=== PATIENT | male | born 1990 | race Caucasian/White ===

== ENCOUNTER 2021-01-20 10:21 | Emergency (ER) | payer SELFPAY ==
[~2021-01-20] VITALS: Ht 177 cm; Wt 77.0 kg
[2021-01-20 10:25] VITALS: BP 129/76
--- NOTE | 2021-01-20 11:12 | ED EENT ---
History of Present Illness General Chief Complaint: Dental Problems/Pain Stated Complaint: ABCESS TOOTH, L EAR PAIN Nursing Triage Note: PT CO OF DENTAL PAIN Source: patient Exam Limitations: no limitations History of Present Illness Date Seen by Provider: Jan 20, 2021 Time Seen by Provider: 10:55 Initial Comments Patient is a 30-year-old male who presents to the emergency department today with a chief complaint of left upper posterior molar dental pain. Onset a couple of days ago. Patient is also complaining of decreased hearing and sensation of a foreign object in his left ear. He is also requesting a tetanus shot. No fevers chills, URI complaints. No chest pain shortness of breath abdominal pain nausea or vomiting. Patient states he has not taken anything for his dental pain. He is not current ly on antibiotics and does not have a dentist. Complains of concern for swelling around the gum area of the tooth. All other review of systems reviewed and negative except as stated. Timing/Duration: gradual Location: ear (L), dental Prearrival Treatment: no prearrival treatment Associated Symptoms: change in hearing (Left ear), tooth pain (Left upper posterior molar) Allergies and Home Medications Allergies Coded Allergies: No Known Drug Allergies (Unverified , 11/11/11) Patient Home Medication List Home Medication List Reviewed: Yes Review of Systems Review of Systems Constitutional: see HPI Ears: Pain (Left ear discomfort) Nose: no symptoms reported Mouth: pain (Left upper posterior molar) Throat: no symptoms reported Respiratory: no symptoms reported Cardiovascular: no symptoms reported All Other Systems Reviewed Negative Unless Noted: Yes Past Iymfsbc-Semwwg-Bbkjkd Hx Patient Social History Tobacco Use?: No Substance use?: Yes Substance type: Marijuana Substance frequency: Couple times a week Alcohol Use?: Yes Alcohol Frequency: Rarely Pt feels they are or have been: No Physical Exam Vital Signs Vital Signs - First Documented 01/20/21 10:25 Temp 37.0 Pulse 130 Resp 18 B/P (MAP) 129/76 (93) Pulse Ox 97 O2 Delivery Room Air Height, Weight, BMI Height: '" Weight: lbs. oz. kg; 24.00 BMI Method:Stated General Appearance: WD/WN, no apparent distress Eyes: bilateral eye normal inspection, bilateral eye PERRL, bilateral eye EOMI Ears: left ear auricle normal, left ear foreign body Nose: normal inspection Mouth/Throat: normal mouth inspection, pharynx normal, dental tenderness (Fractured left upper posterior molar at the gumline. A little surrounding gingival hyperemia, tender to palpation no fluctuance. No overlying swelling on the jaw) Neck: full range of motion, supple, normal inspection Cardiovascular: regular rate, rhythm Respiratory: lungs clear, normal breath sounds, no respiratory distress, no accessory muscle use Neurologic/Psychiatric: alert, normal mood/affect, oriented x 3 Skin: normal color, warm/dry Procedures/Interventions Ear : Ear Location: Left Use of: Forceps Progress/Results/Core Measures Results/Orders Vital Signs/I&O 01/20/21 10:25 Temp 37.0 Pulse 130 Resp 18 B/P (MAP) 129/76 (93) Pulse Ox 97 O2 Delivery Room Air Blood Pressure Mean: 93 Progress Progress Note : Time: 11:09 Progress Note Patient seen and evaluated, left upper posterior molar dental pain and lump foreign body in the left ear. Foreign body was identified and forceps were used to remove what appeared to be the cover off of a set of ear pods. Patient tolerated the procedure well afterwards the ear was reexamined and the TM appears normal without effusion or erythema or perforation. 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 He will be placed on antibiotics and given a small prescription of pain meds and advised to take NSAIDs [id number]. Return precautions will be given. Departure Impression Primary Impression: Foreign body in left ear Qualified Codes: T16.2XXA - Foreign body in left ear, initial encounter Additional Impression: Pain, dental Disposition: 01 HOME, SELF-CARE Condition: Stable Departure-Patient Inst. Decision time for Depature: 11:11 Referrals: [facility],LOCAL PHYSICIAN (PCP) Primary Care Physician Patient Instructions: Dental Pain (DC) Add. Discharge Instructions: Take the antibiotics as prescribed for the next 7 days. I have given you a prescription for some pain medications take these only as necessary. Alternate with [id number]-[id number] ibuprofen, 3 tablets which is 600 mg every 6-8 hours with food as needed for pain. Follow-up with [facility] dental clinic. Return to the emergency room for any worsening dental pain, fever over 101, swelling or other emergent concerning symptoms. Scripts Hydrocodone/Acetaminophen (Hydrocodone-Acetamin 5-325 mg) 1 Each Tablet 1 TAB PO Q6H PRN for PAIN-MODERATE (5-7), #10 TAB Prov: ABEL GALEAS MD 01/20/21 Penicillin V Potassium (Penicillin V Potassium) 500 Mg Tablet 500 MG PO QID, #28 TAB Prov: ABEL GALEAS MD 01/20/21 ABEL GALEAS MD Jan 20, 2021 11:12
[2021-01-20] MEDS ORDERED: PENI500T PO (11:13)
[2021-01-20] MEDS ORDERED: ACHD5005 PO (11:13)
[2021-01-20] MEDS ORDERED: TETANUS,DIPTH,PERTUSS P/F (BOOSTRIX) 0.5 ML VIAL IM ONE (11:15)
== END 2021-01-20 11:23 | disposition home or self-care (01) ==
LOC: EDUNIT# 10:21 → ER 10:22
DX: T16.2XXA Foreign body in left ear, initial encounter (principal); K08.89 Other specified disorders of teeth and supporting structures; Z23 Encounter for immunization
CPT/HCPCS: 90715; 99284

== ENCOUNTER 2021-02-19 14:06 | Emergency (ER) | payer SELFPAY ==
[~2021-02-19] VITALS: Ht 177.8 cm; Wt 75.0 kg
[~2021-02-19 14:06] MED LIST: ACHD5005 PO; PENI500T PO
[2021-02-19 14:15] VITALS: BP 159/103
--- NOTE | 2021-02-19 14:26 | ED EENT ---
History of Present Illness General Chief Complaint: Dental Problems/Pain Stated Complaint: TOOTH PAIN Source: patient Exam Limitations: no limitations History of Present Illness Date Seen by Provider: Feb 19, 2021 Time Seen by Provider: 14:10 Initial Comments Patient is a 30-year-old male who presents to the emergency department today with a chief complaint of left upper dental pain. Patient has had chronic dental issues for the last couple of years. He smokes marijuana on a daily basis. He states he smokes on like "cigarettes". He has had increasing left posterior upper dental pain for the last 24 to 48 hours. He has been taking ibuprofen and he states that helps a little bit. He describes the pain as throbbing. He has used some oral rinses. No fevers, chills, sore throat, cough or congestion. No nausea vomiting or d iarrhea. No Covid concerns. Patient is not Covid vaccinated and does not wish to get the Covid vaccine secondary to concerns of it making him sterile. All other review of systems reviewed and negative except as stated above. Timing/Duration: gradual Location: dental Prearrival Treatment: over the counter meds Associated Symptoms: tooth pain Allergies and Home Medications Allergies Coded Allergies: No Known Drug Allergies (Unverified , 11/11/11) Home Medications Hydrocodone/Acetaminophen 1 Each Tablet, 1 TAB PO Q6H PRN for PAIN-MODERATE (5- 7) Prescribed by: ABEL GALEAS on 01/20/21 1114 Penicillin V Potassium 500 Mg Tablet, 500 MG PO QID Prescribed by: ABEL GALEAS on 01/20/21 1113 Patient Home Medication List Home Medication List Reviewed: Yes Review of Systems Review of Systems Constitutional: see HPI Eyes: No Symptoms Reported Ears: No Symptoms Reported Nose: no symptoms reported Mouth: pain, swelling Throat: no symptoms reported Respiratory: no symptoms reported Cardiovascular: no symptoms reported Musculoskeletal: no symptoms reported Skin: no symptoms reported All Other Systems Reviewed Negative Unless Noted: Yes Past Mqqbrki-Omwnly-Fywcmd Hx Patient Social History Tobacco Use?: No Use of E-Cig and/or Vaping dev: No Substance use?: Yes Substance type: Marijuana Alcohol Use?: No Pt feels they are or have been: No Immunizations Up To Date Influenza Vaccine Up-to-Date: No; Not Current Physical Exam Height, Weight, BMI Height: '" Weight: lbs. oz. kg; 24.00 BMI Method:Stated General Appearance: WD/WN, no apparent distress Eyes: bilateral eye normal inspection Nose: normal inspection Mouth/Throat: pharynx normal, other (Multiple necrotic/carious teeth. Patient's left upper posterior molar is necrotic to the gumline with surrounding gingival edema and erythema. No drainable abscess is visualized very tender to palpation) Neck: full range of motion, supple, normal inspection Respiratory: no respiratory distress, no accessory muscle use Neurologic/Psychiatric: alert, normal mood/affect, oriented x 3 Skin: normal color, warm/dry Progress/Results/Core Measures Progress Progress Note : Time: 14:43 Progress Note Discussed plan of care with the patient, this includes ibuprofen 800 mg 3 times daily with food. We will start him on some penicillin. We will send it to the [facility] pharmacy. Patient is given good return precautions. He verbalized understanding. All questions are sought and answered. Patient is stable for discharge. Departure Impression Primary Impression: Dental caries Disposition: HOME, SELF-CARE Condition: Stable Departure-Patient Inst. Decision time for Depature: 14:24 Referrals: [facility],LOCAL PHYSICIAN (PCP) Primary Care Physician Patient Instructions: Dental Pain (DC) Add. Discharge Instructions: Use a good oral rinse for dental hygiene. You can also swish and spit warm salt water to help take the inflammation out of your gums. Follow-up with [facility]/dental clinic. Take the antibiotics as directed until they are gone. Use [id number]-age-zewckgc ibuprofen, 3 or 4 pills which is 600 to 800 mg, with food every 8 hours as needed for pain. Return to the emergency room for any new, concerning or emergent complaints. Scripts Penicillin V Potassium (Penicillin V Potassium) 500 Mg Tablet 500 MG PO TID for 7 Days, #21 TAB Prov: ABEL GALEAS MD 02/19/21 ABEL GALEAS MD Feb 19, 2021 14:26
[2021-02-19] MEDS ORDERED: PENI500T PO (14:28)
--- OUTSIDE RECORDS SUMMARY | 2021-02-21 22:49 | XMS REPORT | Clinical Summary ---
Author Author [facility] Organization [facility] Address Unknown Phone Unavailable Care Team Providers Care Security Alarm Technician Name Role Phone PCP Unavailable Allergies Not on File Medications Not on file Active Problems Not on file Social History Date Tobacco Use Types Packs/Day Years Used Never Assessed Sex Assigned at Date Recorded Not on file Last Filed Vital Signs Not on file Plan of Treatment Not on file Results Not on filefrom Last 3 Months
== END 2021-02-19 14:50 | disposition home or self-care (01) ==
LOC: EDUNIT# 14:06 → ER 14:07
DX: K02.9 Dental caries, unspecified (principal); F17.210 Nicotine dependence, cigarettes, uncomplicated
CPT/HCPCS: 99282

== ENCOUNTER 2021-05-23 16:52 | Emergency (ER) | payer SELFPAY ==
[~2021-05-23] VITALS: Ht 177.8 cm; Wt 77.3 kg
[2021-05-23 17:05] VITALS: BP 146/89
[2021-05-23] MEDS ORDERED: LIDOCAINE 2% VISCOUS 15 ML UDC PO ONE (17:30)
[2021-05-23] MEDS ORDERED: PENICILLIN V K 250 MG TAB PO ONE (17:30)
[2021-05-23] MEDS ORDERED: PENI500T PO (17:50)
--- NOTE | 2021-05-23 17:50 | ED EENT ---
History of Present Illness General Chief Complaint: Dental Problems/Pain Stated Complaint: CHIPPED A TOOTH Nursing Triage Note: PT AMB TO FT 1 W REPORTS OF LEFT BACK UPPER TOOTH PAIN SX LAST NIGHT WHEN HE WAS EATING CHIPS AND FELT IT BREAK. PT CONCERNED IT MAY BE INFECTED. NO SCHEDULED DENTIST APPT. PT A&OX4. Source: patient Exam Limitations: no limitations History of Present Illness Date Seen by Provider: May 23, 2021 Time Seen by Provider: 17:25 Initial Comments This 31-year-old gentleman presents to the emergency room with complaints of left upper mouth pain where he has significant deterioration of the teeth. He is concerned he is developing infection. He is not currently seeing a dentist for this problem. He reports previously being treated with penicillin for similar complaints with good improvement. He denies fever or chills. Allergies and Home Medications Allergies Coded Allergies: No Known Drug Allergies (Unverified , 11/11/11) Patient Home Medication List Home Medication List Reviewed: Yes Hydrocodone/Acetaminophen (Hydrocodone-Acetamin 5-325 mg) 1 Each Tablet, 1 TAB PO Q6H PRN for PAIN-MODERATE (5-7) Prescribed by: ABEL GALEAS on 01/20/21 1114 Penicillin V Potassium (Penicillin V Potassium) 500 Mg Tablet, 500 MG PO QID Prescribed by: ABEL GALEAS on 01/20/21 1113 Penicillin V Potassium (Penicillin V Potassium) 500 Mg Tablet, 500 MG PO TID Prescribed by: ABEL GALEAS on 02/19/21 1428 Penicillin V Potassium (Penicillin V Potassium) 500 Mg Tablet, 500 MG PO QID Prescribed by: BHARAT ALVARADO on 05/23/21 1750 Review of Systems Review of Systems Constitutional: no symptoms reported Eyes: No Symptoms Reported Ears: No Symptoms Reported Nose: no symptoms reported Mouth: see HPI Throat: no symptoms reported Respiratory: no symptoms reported Cardiovascular: no symptoms reported Gastrointestinal: no symptoms reported Past Jgryucj-Afwkfq-Ltfggk Hx Patient Social History Tobacco Use?: No Substance use?: Yes Substance type: Marijuana Alcohol Use?: Yes Physical Exam Vital Signs Vital Signs - First Documented 05/23/21 17:05 Temp 36.6 Pulse 111 Resp 22 B/P (MAP) 146/89 (108) Pulse Ox 95 O2 Delivery Room Air Height, Weight, BMI Height: '" Weight: lbs. oz. kg; 24.00 BMI Method:Stated General Appearance: WD/WN, no apparent distress Eyes: bilateral eye normal inspection, bilateral eye EOMI Ears: bilateral ear auricle normal, bilateral ear canal normal, bilateral ear TM normal Nose: normal inspection; No active bleeding Mouth/Throat: pharynx normal, dental tenderness (Left upper molar), other (There is severe dental decay in multiple areas, particularly the left upper molars where he is having pain. No overt areas of significant inflammation or suggestion of abscess. There is tenderness in the left upper molars and gingiva.) Neck: supple, normal inspection Cardiovascular: regular rate, rhythm, no edema, no murmur Respiratory: lungs clear, normal breath sounds, no respiratory distress Neurologic/Psychiatric: hand alterations tailor II-XII nml as tested, alert, normal mood/affect, or iented x 3 Skin: normal color, warm/dry Progress/Results/Core Measures Results/Orders My Orders Vital Signs/I&O Blood Pressure Mean: 108 Progress Progress Note : Progress Note Patient was treated with his first dose of penicillin in the ER and anesthetic gauze pads were prepared. Patient was given warnings about proper use of anesthetic gauze pads. See discharge instructions. No overt evidence of drainable abscess was present on exam. Patient was strongly encouraged to see a dentist as soon as possible to arrange extractions of the roots affected. Departure Impression Primary Impression: Dental decay Additional Impression: Pain, dental Disposition: 01 HOME, SELF-CARE Condition: Improved Departure-Patient Inst. Decision time for Depature: 17:47 Referrals: NO,LOCAL PHYSICIAN (PCP/Family) Primary Care Physician Patient Instructions: Dental Pain, Tooth Decay ED Add. Discharge Instructions: Wilcox your teeth gently twice daily with a soft toothbrush. Rinse with an antiseptic mouthwash such as Listerine if tolerated. Complete your antibiotics as prescribed. Follow-up with a dentist as soon as possible. You will likely need extractions of the remaining roots and damaged teeth to prevent future infection. You may use ibuprofen up to 600 mg every 6 hours and/or Tylenol (acetaminophen) up to 1000 mg every 6 hours as needed for pain. You may additionally use the anesthetic and gauze pads by placing them over the area that hurts most. Eat and drink very carefully after using these anesthetic gauze pads as it may cause numbing to the mouth, lips, tongue, and throat. Do NOT fall asleep with these gauze pads in your mouth. Call with questions or concerns. Return to the ER if you have worsening symptoms. All discharge instructions reviewed with patient and/or family. Voiced understanding. Scripts Penicillin V Potassium (Penicillin V Potassium) 500 Mg Tablet 500 MG PO QID, #40 TAB Prov: BAHRAT HERNANDEZ MD 05/23/21 BHARAT HERNANDEZ MD May 23, 2021 17:50
== END 2021-05-23 17:55 | disposition home or self-care (01) ==
LOC: EDUNIT# 16:52 → ER 16:54
DX: K02.9 Dental caries, unspecified (principal)
CPT/HCPCS: 99283

== ENCOUNTER 2021-06-16 11:37 | Emergency (ER) | payer SELFPAY ==
[~2021-06-16] VITALS: Ht 180.3 cm; Wt 78.7 kg
[2021-06-16 11:44] VITALS: BP 163/105
[2021-06-16] MEDS ORDERED: PENI500T PO (12:05)
[2021-06-16] MEDS ORDERED: NAPR500T8 PO (12:05)
--- NOTE | 2021-06-16 12:05 | ED General ---
General Chief Complaint: General Problems/Pain Stated Complaint: R LEG SPIDER BITE,ABCESS TOOTH Nursing Triage Note: C/O BILATERAL DENTAL PAIN AND CONCERN FOR ABCESS. ALSO HAS RED SORE ON RIGHT OUTER THIGH PATIENT QUESTIONS IF IT IS A SPIDER BITE 2-3 DAYS AGO. Source of Information: Patient Exam Limitations: No Limitations History of Present Illness Date Seen by Provider: Jun 16, 2021 Time Seen by Provider: 12:00 Initial Comments Patient is a 31-year-old male who presents ED with a possible spider bite to his right anterior lower leg. Patient noted a small red "bump" 2 days ago. Mild increase in size. Denies any drainage. Denies of any necrotic or black center. Patient denies any drainage, fever, increased redness. Does report pain localized to this area. History of staph infections. Patient also reports poor teeth that needed surgical removal. He has noted increased pain to his left upper molar and right lower teeth over the past few days. History of similar symptoms improved with penicillin. Has been taken anti-inflammatories without much improvement. Denies any facial swelling, redness, fever, chills, cough, shortness of breath or chest pain. Patient attempted to follow-up with dental but was not able to see patient this week Allergies and Home Medications Allergies Coded Allergies: No Known Drug Allergies (Unverified , 11/11/11) Patient Home Medication List Home Medication List Reviewed: Yes Hydrocodone/Acetaminophen (Hydrocodone-Acetamin 5-325 mg) 1 Each Tablet, 1 TAB PO Q6H PRN for PAIN-MODERATE (5-7) Prescribed by: ABEL GALEAS on 01/20/21 1114 Naproxen (Naproxen) 500 Mg Tablet.dr, 500 MG PO BID Prescribed by: JEANNINE BROOKS on 06/16/21 1205 Penicillin V Potassium (Penicillin V Potassium) 500 Mg Tablet, 500 MG PO QID Prescribed by: ABEL GALEAS on 01/20/21 1113 Penicillin V Potassium (Penicillin V Potassium) 500 Mg Tablet, 500 MG PO TID Prescribed by: ABEL GALEAS on 02/19/21 1428 Penicillin V Potassium (Penicillin V Potassium) 500 Mg Tablet, 500 MG PO QID Prescribed by: BHARAT ALVARADO on 05/23/21 1750 Penicillin V Potassium (Penicillin V Potassium) 500 Mg Tablet, 500 MG PO QID Prescribed by: JEANNINE BROOKS on 06/16/21 1205 Review of Systems Review of Systems Constitutional: No chills, No diaphoresis, No fever, No malaise EENTM: dental problems, mouth pain; No ear pain, No blurred vision, No eye pain, No vision loss Respiratory: No cough, No short of breath Cardiovascular: No chest pain Gastrointestinal: No abdominal pain, No diarrhea, No vomiting Genitourinary: No dysuria, No frequency Musculoskeletal: No back pain, No joint pain Skin: other (Skin redness and swelling right lower leg with possible abscess) Psychiatric/Neurological: No Symptoms Reported Hematologic/Lymphatic: No Symptoms Reported All Other Systems Reviewed Negative Unless Noted: Yes Physical Exam Vital Signs Vital Signs - First Documented 06/16/21 11:44 Temp 35.5 Pulse 90 Resp 16 B/P (MAP) 163/105 (124) Pulse Ox 98 O2 Delivery Room Air Capillary Refill : Less Than 3 Seconds Height, Weight, BMI Height: '" Weight: lbs. oz. kg; 24.00 BMI Method:Stated General Appearance: No Apparent Distress, WD/WN Eyes: Bilateral Eye Normal Inspection, Bilateral Eye PERRL, Bilateral Eye EOMI HEENT: PERRL/EOMI, TMs Normal, Normal ENT Inspection, Pharynx Normal, Other (Poor dentition throughout. Extensive decay noted to left upper molar and right lower teeth. No fluctuant mass. Mild gum swelling and redness.) Neck: Normal Inspection, Non Tender Respiratory: Chest Non Tender, Lungs Clear, Normal Breath Sounds Cardiovascular: Regular Rate, Rhythm, No Edema, No Gallop, No JVD Gastrointestinal: Normal Bowel Sounds, No Organomegaly, Non Tender Back: Normal Inspection, No CVA Tenderness, No Vertebral Tenderness Skin: Other (Localized pea-sized papule to right lower leg with surrounding redness and swelling. No fluctuant mass. No necrotic tissue.) Progress/Results/Core Measures Suspected Sepsis SIRS Temperature: Pulse: 90 Respiratory Rate: 16 Blood Pressure 163 /105 Mean: 124 Results/Orders Vital Signs/I&O 06/16/21 11:44 Temp 35.5 Pulse 90 Resp 16 B/P (MAP) 163/105 (124) Pulse Ox 98 O2 Delivery Room Air Capillary Refill : Less Than 3 Seconds Blood Pressure Mean: 124 Departure Communication (Admissions) Patient presents to the ED with cellulitis to his right lower leg and dental pain. History of similar type dental pain. Extensive decay. Patient acknowledges that he needs a follow-up with dental. No fluctuant mass. No faci al swelling or redness. Reports dental block. Will discharge with penicillin VK as he is taken in the past with improvement. He does have localized redness to the right lower leg with a small papule with a potential abscess. Pea size. Does not appear fluctuant at this time. Will discharge with antibiotics. Recommend warm compresses. If any worsening redness, swelling to return back to ED for further evaluation and drainage. Impression Primary Impression: Pain, dental Additional Impression: Cellulitis Disposition: HOME, SELF-CARE Condition: Stable Departure-Patient Inst. Decision time for Depature: 12:04 Referrals: NO,LOCAL PHYSICIAN (PCP/Family) Primary Care Physician Patient Instructions: Dental Pain (DC), Cellulitis (Skin Infection), Adult ED Scripts Naproxen (Naproxen) 500 Mg Tablet.dr 500 MG PO BID for 7 Days, #14 TAB Prov: LORAINE BURNS 06/16/21 Penicillin V Potassium (Penicillin V Potassium) 500 Mg Tablet 500 MG PO QID for 7 Days, #28 TAB Prov: LORAINE BURNS 06/16/21 LORAINE BURNS Jun 16, 2021 12:05
== END 2021-06-16 12:10 | disposition home or self-care (01) ==
LOC: EDUNIT# 11:37 → ER 11:39
DX: K08.89 Other specified disorders of teeth and supporting structures (principal); L03.115 Cellulitis of right lower limb
CPT/HCPCS: 99283

== ENCOUNTER 2021-06-18 14:40 | Emergency (ER) | payer SELFPAY ==
[~2021-06-18] VITALS: Ht 180.3 cm; Wt 79.4 kg
[~2021-06-18 14:40] MED LIST changes: +NAPR500T8 PO
[2021-06-18] MEDS ORDERED: ACHD5005 PO (15:20)
[2021-06-18] MEDS ORDERED: DOXY100T2 PO (15:20)
--- NOTE | 2021-06-18 15:22 | ED Integumentary General ---
General Chief Complaint: Bite-Animal/Human/Insect Stated Complaint: R LEG SPIDER BITE Source: patient Exam Limitations: no limitations History of Present Illness Date Seen by Provider: Jun 18, 2021 Time Seen by Provider: 15:18 Initial Comments To ER with right thigh "spider bite" for a few days. No fevers or chills. Currently on penicillin for a dental infection. Timing/Duration: just prior to arrival Severity: moderate Location: extremities Possible Cause: no cause identified Associated Symptoms: denies symptoms Allergies and Home Medications Allergies Coded Allergies: No Known Drug Allergies (Unverified , 11/11/11) Patient Home Medication List Home Medication List Reviewed: Yes Hydrocodone/Acetaminophen (Hydrocodone-Acetamin 5-325 mg) 1 Each Tablet, 1 TAB PO Q6H PRN for PAIN-MODERATE (5-7) Prescribed by: ABEL GALEAS on 01/20/21 1114 Naproxen (Naproxen) 500 Mg Tablet.dr, 500 MG PO BID Prescribed by: JEANNINE BROOKS on 06/16/21 1205 Penicillin V Potassium (Penicillin V Potassium) 500 Mg Tablet, 500 MG PO QID Prescribed by: ABEL GALEAS on 01/20/21 1113 Penicillin V Potassium (Penicillin V Potassium) 500 Mg Tablet, 500 MG PO TID Prescribed by: ABEL GALEAS on 02/19/21 1428 Penicillin V Potassium (Penicillin V Potassium) 500 Mg Tablet, 500 MG PO QID Prescribed by: BHARAT ALVARADO on 05/23/21 1750 Penicillin V Potassium (Penicillin V Potassium) 500 Mg Tablet, 500 MG PO QID Prescribed by: JEANNINE BROOKS on 06/16/21 1205 Review of Systems Review of Systems Constitutional: see HPI; No chills, No dizziness, No fever EENTM: see HPI Respiratory: no symptoms reported Cardiovascular: no symptoms reported Genitourinary: no symptoms reported Musculoskeletal: no symptoms reported Skin: see HPI Psychiatric/Neurological: No Symptoms Reported Endocrine: No Symptoms Reported Past Yikqnbu-Kbtfva-Ilfzsj Hx Patient Social History Tobacco Use?: No Smoking Status: Never a Smoker Smokeless Tobacco Frequency: Never a User Use of E-Cig and/or Vaping dev: No Use of E-Cig and/or Vaping En: Never a User Substance use?: Yes Substance type: Marijuana Alcohol Use?: No Pt feels they are or have been: No Physical Exam Vital Signs Capillary Refill : Less Than 3 Seconds General Appearance: WD/WN, no apparent distress HEENT: PERRL/EOMI, normal ENT inspection Neck: non-tender, full range of motion Respiratory: no respiratory distress, no accessory muscle use (Yesterday) Neurologic/Psychiatric: alert, normal mood/affect, oriented x 3 Skin: normal color, warm/dry Skin Problem Character: other (Erythema to the right anterior thigh without fluctuance though there is about 4 cm of induration with a 1 cm necrotic eschar in the center.) Departure Impression Primary Impression: Cellulitis Disposition: HOME, SELF-CARE Condition: Stable Departure-Patient Inst. Decision time for Depature: 15:19 Referrals: NO,LOCAL PHYSICIAN (PCP/Family) Primary Care Physician Patient Instructions: Wound Care (DC) Add. Discharge Instructions: 1. This will probably take 2 to 3 weeks to resolve. Return to ER for any worsening such as fevers chills increasing redness. Take the antibiotic as directed. All discharge instructions reviewed with patient and/or family. Voiced understanding. Scripts Hydrocodone/Acetaminophen (Hydrocodone-Acetamin 5-325 mg) 1 Each Tablet 1 TAB PO Q4H PRN for PAIN-MODERATE (5-7), #10 TAB Prov: HANSEL MENDOZA APRN 06/18/21 Doxycycline Hyclate (Doxycycline Hyclate) 100 Mg Tablet 100 MG PO BID, #20 TAB 0 Refills Prov: HANSEL MENDOZA APRN 06/18/21 HANSEL MENDOZA APRN Jun 18, 2021 15:22
[2021-06-18 15:24] VITALS: BP 133/78
== END 2021-06-18 15:24 | disposition home or self-care (01) ==
LOC: EDUNIT# 14:40 → ER 14:41
DX: L03.115 Cellulitis of right lower limb (principal)
CPT/HCPCS: 99281

== ENCOUNTER 2021-12-18 08:36 | Emergency (ER) | payer SELFPAY ==
[~2021-12-18] VITALS: Ht 70 cm; Wt 79.4 kg
[~2021-12-18 08:36] MED LIST changes: +DOXY100T2 PO
--- NOTE | 2021-12-18 08:59 | ED Integumentary General ---
General Chief Complaint: Laceration Stated Complaint: LEFT HAND INJURY Nursing Triage Note: PT PRESENTS WITH A CAULKING GUN IN LT HAND WITH THE METAL END USED TO CLEAN OUT THE CAULKING STUCK IN THE THIRD DIGIT. Source: patient Exam Limitations: no limitations History of Present Illness Date Seen by Provider: Dec 18, 2021 Time Seen by Provider: 08:40 Initial Comments Patient is a 31-year-old male who presents to the emergency department today with a chief complaint of left middle finger injury. Patient was using a caulking gun and was attempting to clean it out and relocate the caulking gun when the tip broke and a sharp metal point at the tip of the caulking gun went through the volar aspect of the proximal middle finger. Patient complained of immediate pain, inability to straighten out his middle finger. He states he is up-to-date with his tetanus, last one was 4 months ago. No other complaints of illness or injury. All other review of systems reviewed and negative except as stated. Timing/Duration: just prior to arrival Severity: severe Location: extremities Possible Cause: other (penetrating injury) Associated Symptoms: other (nausea and a little SOB) Allergies and Home Medications Allergies Coded Allergies: No Known Drug Allergies (Unverified , 11/11/11) Patient Home Medication List Home Medication List Reviewed: Yes Dicloxacillin Sodium (Dicloxacillin Sodium) 500 Mg Capsule, 500 MG PO Q6H Prescribed by: ABEL GALEAS on 12/18/21 0900 Doxycycline Hyclate (Doxycycline Hyclate) 100 Mg Tablet, 100 MG PO BID Prescribed by: HANSEL MENDOZA on 06/18/21 1520 Hydrocodone/Acetaminophen (Hydrocodone-Acetamin 5-325 mg) 1 Each Tablet, 1 TAB PO Q6H PRN for PAIN-MODERATE (5-7) Prescribed by: ABEL GALEAS on 01/20/21 1114 Hydrocodone/Acetaminophen (Hydrocodone-Acetamin 5-325 mg) 1 Each Tablet, 1 TAB PO Q4H PRN for PAIN-MODERATE (5-7) Prescribed by: HANSEL MENDOZA on 06/18/21 1521 Naproxen (Naproxen) 500 Mg Tablet.dr, 500 MG PO BID Prescribed by: JEANNINE BROOKS on 06/16/21 1205 Penicillin V Potassium (Penicillin V Potassium) 500 Mg Tablet, 500 MG PO QID Prescribed by: ABEL GALEAS on 01/20/21 1113 Penicillin V Potassium (Penicillin V Potassium) 500 Mg Tablet, 500 MG PO TID Prescribed by: ABEL GALEAS on 02/19/21 1428 Penicillin V Potassium (Penicillin V Potassium) 500 Mg Tablet, 500 MG PO QID Prescribed by: BHARAT ALVARADO on 05/23/21 1750 Penicillin V Potassium (Penicillin V Potassium) 500 Mg Tablet, 500 MG PO QID Prescribed by: JEANNINE BROOKS on 06/16/21 1205 Review of Systems Review of Systems Constitutional: see HPI Respiratory: short of breath Cardiovascular: no symptoms reported Gastrointestinal: nausea Musculoskeletal: joint pain (left middle finger) Skin: other (puncture wound) Psychiatric/Neurological: Anxiety All Other Systems Reviewed Negative Unless Noted: Yes Physical Exam Vital Signs Vital Signs - First Documented 12/18/21 08:45 Temp 35.9 Pulse 87 Resp 18 B/P (MAP) 111/66 (81) Pulse Ox 95 O2 Delivery Room Air Capillary Refill : Less Than 3 Seconds General Appearance: WD/WN, mild distress HEENT: PERRL/EOMI Cardiovascular: regular rate, rhythm Respiratory: no respiratory distress, no accessory muscle use Extremities: other (Left hand, middle finger held in full flexion with point of the caulking gun entering from the medial aspect at the midpoint of the left proximal phalanx across laterally, the puncture is not "through and through".) Neurologic/Psychiatric: alert, normal mood/affect, oriented x 3 Skin: normal color, warm/dry Procedures/Interventions Wound Location: Upper Extremities (left 3rd finger) Other Wound Location left 3rd finger; volar prox phalanx Wound Explored: contaminated Anesthesia: 1% Lidocaine Volume Anesthetic (ccs): 4 Progress Patient anesthetized with 4 cc of 1% plain lidocaine in a digital block of the left third finger. After appropriate anesthesia was achieved the tip/point of the caulking gun was gently removed from the finger. No active bleeding after the procedure. Patient was placed in a chlorhexidine and saline bath for soaking for the next 15 minutes. Progress/Results/Core Measures Results/Orders My Orders Orders - ABEL GALEAS MD Hand, Left, 3 Views (12/18/21 09:01) Vital Signs/I&O 12/18/21 08:45 Temp 35.9 Pulse 87 Resp 18 B/P (MAP) 111/66 (81) Pulse Ox 95 O2 Delivery Room Air Blood Pressure Mean: 81 Diagnostic Imaging Diagonstic Imaging: Xray Comments Left hand x-ray-no foreign body identified overlying the volar aspect of the left third proximal phalanx. No bony injuries noted. -Interpreted by me Departure Impression Primary Impression: puncture wound left 3rd finger Additional Impression: foreign body left 3rd finger Disposition: HOME, SELF-CARE Condition: Stable Departure-Patient Inst. Decision time for Depature: 08:59 Referrals: [facility] [place] NO,LOCAL PHYSICIAN (PCP) Primary Care Physician Patient Instructions: Taking Care of Cuts, Scrapes, and Puncture Wounds Add. Discharge Instructions: Wash the hand with a good antibacterial soap and water at least 3 times a day over the next week. Take the antibiotics as directed. [id number] ibuprofen, 3 tablets which is 600 mg every 6 hours as needed for pain with food. Please finish the entire course of antibiotics. If you notice increasing swelling of the third finger that progresses down the length of the finger, inability to extend the finger, increasing redness or drainage of pus from the finger please come back to the emergency department for reevaluation. Otherwise, please follow-up with [facility] as needed for frequent wound care management Scripts Dicloxacillin Sodium (Dicloxacillin Sodium) 500 Mg Capsule 500 MG PO Q6H for 7 Days, #28 CAP Prov: ABEL GALEAS MD 12/18/21 ABEL GALEAS MD Dec 18, 2021 08:59
[2021-12-18] MEDS ORDERED: DICL500C PO (09:00)
[2021-12-18 09:36] VITALS: BP 111/66
--- NOTE | 2021-12-18 09:40 | Diagnostic Imaging Report ---
INDICATION: Puncture wound 3rd finger. Pain. EXAMINATION: Left hand 12/18/2021 FINDINGS: 3 views of the hand There is subcutaneous air along the anterior aspect of the 3rd phalanx consistent with a known puncture wound. No radiopaque foreign bodies appreciated. There are no fractures or dislocations. IMPRESSION: 1. Soft tissue abnormality with otherwise negative hand. Dictated by: Dictated on workstation # [id number]
== END 2021-12-18 09:36 | disposition home or self-care (01) ==
LOC: EDUNIT# 08:36 → ER 08:40
DX: S61.243A Puncture wound with foreign body of left middle finger without damage to nail, initial encounter (principal); W45.8XXA Other foreign body or object entering through skin, initial encounter
CPT/HCPCS: 64450; 73130